=== PATIENT | female | born 1995 | race African-American/Black ===

== ENCOUNTER → 2022-05-01 | Outpatient (CLI) | payer OTHER, SELFPAY ==
[2022-05-01 15:42] LABS: HEMATOCRIT 39.4 % (36.0-47.0); HEMOGLOBIN 12.7 g/dl (12.0-15.5); MEAN CORPUSCULAR HGB CONC 32.2 g/dl (32.0-36.5); MEAN CORPUSCULAR VOLUME 86.8 fl (80.0-96.0); PLATELET COUNT, AUTOMATED 334 10^3/uL (150-450); RED BLOOD COUNT 4.54 10^6/uL (4.00-5.40); WHITE BLOOD COUNT 9.1 10^3/uL (4.0-10.0)
[2022-05-01 16:55] LABS: HCG, SERUM QUANTITATIVE 67899 MIU/ML; HEPATITIS C VIRUS ABY INDEX 0.1 INDEX (<0.8); HIV 1&2 SCREEN CENTAUR NEGATIVE (NEGATIVE)
== END ==
LOC: M LAB 14:40
PROVIDERS: ATTEND Obstetrics & Gynecology
DX: Z32.01 Encounter for pregnancy test, result positive (principal); O36.80X0 Pregnancy with inconclusive fetal viability, not applicable or unspecified

== ENCOUNTER 2022-06-13 18:00 | Emergency (ER) | payer OTHER, SELFPAY ==
[~2022-06-13] VITALS: Ht 175.3 cm; Wt 98.5 kg
[2022-06-13 23:22] LABS: RBC, URINE NONE SEEN /hpf (0-3); SQUAMOUS EPITHELIAL CELL URINE LARGE AMOUNT /hpf (SMALL AMT)
[2022-06-13 23:23] LABS: BACTERIA, URINE SMALL AMOUNT; HYALINE CAST, URINE NONE SEEN /lpf (0-1); MUCUS, URINE LARGE AMOUNT (NEGATIVE)
[2022-06-14] MEDS ORDERED: NS 1,000 ML IV ONE (00:15)
[2022-06-14] MEDS ORDERED: ONDANSETRON 4MG 2ML VIAL IV ONE (00:35)
[2022-06-14 01:25] LABS: BASO % 0.3 % (0.0-1.0); EOS % 0.1 % (0.0-3.0); HEMATOCRIT 33.8 % (36.0-47.0); HEMOGLOBIN 11.1 g/dl (12.0-15.5); LYMPH # 1.9 10^3/uL (1.5-5.0); LYMPH % 13.6 % (24.0-44.0); MEAN CORPUSCULAR HEMOGLOBIN 28.5 pg (27.0-33.0); MEAN CORPUSCULAR HGB CONC 32.8 g/dl (32.0-36.5); MEAN CORPUSCULAR VOLUME 86.7 fl (80.0-96.0); MONO # 0.9 10^3/uL (0.0-0.8); MONO % 6.5 % (2.0-8.0); NEUTROPHILS # 11.1 10^3/uL (1.5-8.5); NEUTROPHILS % 78.9 % (36.0-66.0); PLATELET COUNT, AUTOMATED 322 10^3/uL (150-450); WHITE BLOOD COUNT 14.1 10^3/uL (4.0-10.0)
[2022-06-14] MEDS ORDERED: NS 500 ML IV ONE (01:55)
[2022-06-14 02:01] LABS: ALBUMIN 2.9 GM/DL (3.2-5.2); BILIRUBIN,DIRECT 0.2 MG/DL (0.0-0.2); BILIRUBIN,TOTAL 0.4 MG/DL (0.2-1.0); TOTAL PROTEIN 7.1 GM/DL (6.4-8.2)
[2022-06-14] MEDS ORDERED: COLA100C5 PO (02:33)
[2022-06-14] MEDS ORDERED: ONDA4TAB6 PO (02:33)
[2022-06-14 02:36] VITALS: BP 109/58
== END 2022-06-14 02:45 | disposition home or self-care (01) ==
LOC: M ED 18:00
DX: O21.1 Hyperemesis gravidarum with metabolic disturbance (principal); Z3A.15 15 weeks gestation of pregnancy
CPT/HCPCS: 76801; 80047; 80076; 81000; 83690; 84702; 85025; 87086; 96361; 96374; 99284; J2405

== ENCOUNTER 2022-08-29 18:11 | Outpatient (CLI) | payer OTHER, SELFPAY ==
[~2022-08-29] VITALS: Ht 175.3 cm; Wt 101.3 kg
[~2022-08-29 18:11] MED LIST: COLA100C5 PO; ONDA4TAB6 PO
[2022-08-29] MEDS ORDERED: ACET325C5 PO (18:28)
[2022-08-29 18:34] VITALS: BP 127/67
[2022-08-29] MEDS ORDERED: HOME MED LIST COMPLETE! XX SCH (18:45)
[2022-08-29 19:15] VITALS: BP 125/60
[2022-08-29] MEDS ORDERED: CYCLOBENZAPRINE 5MG TABLET PO ONE (19:35)
[2022-08-30] MEDS ORDERED: PRENTAB9 PO (20:50)
== END 2022-08-29 20:25 | disposition home or self-care (01) ==
LOC: M LDO 18:11
PROVIDERS: ATTEND Obstetrics & Gynecology
DX: O26.892 Other specified pregnancy related conditions, second trimester (principal); R10.2 Pelvic and perineal pain; Z3A.24 24 weeks gestation of pregnancy
CPT/HCPCS: 59025; 81002; G0463

== ENCOUNTER 2022-08-30 20:29 | Outpatient (CLI) | payer OTHER, SELFPAY ==
[~2022-08-30] VITALS: Ht 175.3 cm; Wt 99.7 kg
[~2022-08-30 20:29] MED LIST changes: +ACET325C5 PO
[2022-08-30] MEDS ORDERED: PRENTAB9 PO (20:50)
[2022-08-30] MEDS ORDERED: diphenhydrAMINE 50MG CAP PO SCH (21:00)
[2022-08-30 21:06] VITALS: BP 129/66
[2022-08-30] MEDS ORDERED: HOME MED LIST COMPLETE! XX SCH (21:45)
[2022-08-30 21:53] LABS: BASO % 0.2 % (0.0-1.0); EOS % 0.1 % (0.0-3.0); HEMATOCRIT 31.7 % (36.0-47.0); HEMOGLOBIN 10.1 g/dl (12.0-15.5); LYMPH # 1.7 10^3/uL (1.5-5.0); LYMPH % 12.5 % (24.0-44.0); MEAN CORPUSCULAR HEMOGLOBIN 27.6 pg (27.0-33.0); MEAN CORPUSCULAR HGB CONC 31.9 g/dl (32.0-36.5); MEAN CORPUSCULAR VOLUME 86.6 fl (80.0-96.0); MONO # 1.1 10^3/uL (0.0-0.8); MONO % 7.8 % (2.0-8.0); NEUTROPHILS # 10.6 10^3/uL (1.5-8.5); NEUTROPHILS % 78.9 % (36.0-66.0); PLATELET COUNT, AUTOMATED 310 10^3/uL (150-450); RED BLOOD COUNT 3.66 10^6/uL (4.00-5.40); WHITE BLOOD COUNT 13.4 10^3/uL (4.0-10.0)
[2022-08-30 22:28] LABS: ALBUMIN 2.7 GM/DL (3.2-5.2); ALT/SGPT 15 U/L (12-78); BILIRUBIN,TOTAL 0.4 MG/DL (0.2-1.0); BLOOD UREA NITROGEN 4 MG/DL (7-18); CALCIUM LEVEL 9.1 MG/DL (8.5-10.1); CARBON DIOXIDE LEVEL 24 MEQ/L (21-32); CHLORIDE LEVEL 102 MEQ/L (98-107); CREATININE FOR GFR 0.53 MG/DL (0.55-1.30); GLOMERULAR FILTRATION RATE > 60.0 (>60); GLUCOSE, FASTING 85 MG/DL (70-100); POTASSIUM SERUM 3.9 MEQ/L (3.5-5.1); SODIUM LEVEL 135 MEQ/L (136-145); TOTAL PROTEIN 6.7 GM/DL (6.4-8.2)
[2022-08-30] MEDS ORDERED: INDOMETHACIN 25 MG CAP PO ONE (23:00)
== END 2022-08-31 01:24 | disposition home or self-care (01) ==
LOC: M LDO 20:29
PROVIDERS: ATTEND Obstetrics & Gynecology
DX: O26.892 Other specified pregnancy related conditions, second trimester (principal); R10.2 Pelvic and perineal pain; Z3A.24 24 weeks gestation of pregnancy; R25.2 Cramp and spasm
CPT/HCPCS: 36415; 59025; 76815; 80053; 81000; 81015; 85025; 87086; G0378; G0463

== ENCOUNTER 2022-11-17 12:38 | Outpatient (CLI) | payer OTHER, SELFPAY ==
[~2022-11-17] VITALS: Ht 175.3 cm; Wt 105.8 kg
[~2022-11-17 12:38] MED LIST changes: +PRENTAB9 PO; +ursodioL 300MG CAP PO SCH
[2022-11-17 12:58] VITALS: BP 119/69
[2022-11-17] MEDS ORDERED: HOME MED LIST COMPLETE! XX SCH (13:15)
[2022-11-17 13:20] LABS: HEMATOCRIT 30.8 % (36.0-47.0); HEMOGLOBIN 9.4 g/dl (12.0-15.5); MEAN CORPUSCULAR HGB CONC 30.5 g/dl (32.0-36.5); MEAN CORPUSCULAR VOLUME 81.9 fl (80.0-96.0); PLATELET COUNT, AUTOMATED 378 10^3/uL (150-450); RED BLOOD COUNT 3.76 10^6/uL (4.00-5.40); WHITE BLOOD COUNT 8.4 10^3/uL (4.0-10.0)
[2022-11-17 13:52] LABS: ALBUMIN 2.2 G/DL (3.2-5.2); ALKALINE PHOSPHATASE 120 U/L (46-116); ALT/SGPT 16 U/L (7.0-40); AST/SGOT 24 U/L (<34); BILIRUBIN,TOTAL 0.5 MG/DL (0.3-1.2); BLOOD UREA NITROGEN < 5 MG/DL (9-23); CALCIUM LEVEL 8.6 MG/DL (8.5-10.1); CARBON DIOXIDE LEVEL 22 MMOL/L (20-31); CHLORIDE LEVEL 104 MMOL/L (98-107); CREATININE FOR GFR 0.44 MG/DL (0.55-1.30); GLOMERULAR FILTRATION RATE > 60.0 (>60); GLUCOSE, FASTING 82 MG/DL (60-100); SODIUM LEVEL 133 MMOL/L (136-145)
== END 2022-11-17 14:30 | disposition home or self-care (01) ==
LOC: M LDO 12:38
PROVIDERS: ATTEND Obstetrics & Gynecology
DX: O26.613 Liver and biliary tract disorders in pregnancy, third trimester (principal); Z3A.36 36 weeks gestation of pregnancy
CPT/HCPCS: 36415; 59025; 80053; 82239; 85027; G0378; G0463

== ENCOUNTER 2022-11-24 09:41 | Inpatient (IN) | payer OTHER, SELFPAY ==
[~2022-11-24] VITALS: Ht 175.3 cm; Wt 104.7 kg
[2022-11-24] VITALS (25 sets, daily range): BP systolic 117–180; BP diastolic 53–124
[~2022-11-24 09:41] MED LIST changes: -ursodioL 300MG CAP PO SCH
[2022-11-24] MEDS ORDERED: LACTATED RINGER'S 1000 ML IV STA (10:09)
[2022-11-24] MEDS ORDERED: OXYTOCIN DRIP 30 UNITS in IV 1 EA IV PRN ×6 (10:10)
[2022-11-24] MEDS ORDERED: OXYTOCIN INJ 10UNITS/ML 1ML VIAL IM PRN (10:10)
[2022-11-24] MEDS ORDERED: METHYLERGONOVINE MALEATE 0.2 MG/ML VIAL (J2210) IM PRN (10:10)
[2022-11-24] MEDS ORDERED: CARBOPROST TROMETHAMINE 250 MCG/ML AMP IM PRN (10:10)
[2022-11-24] MEDS ORDERED: LIDOCAINE 1% MDV 20ML VIAL INFIL PRN (10:10)
[2022-11-24] MEDS ORDERED: TRANEXAMIC ACID INJection 1,000 MG in NS 100 ML IV PRN (10:10)
[2022-11-24] MEDS ORDERED: OXYTOCIN INJ 10UNITS/ML 1ML VIAL IV PRN (10:10)
[2022-11-24 10:56] LABS: HEMATOCRIT 30.4 % (36.0-47.0); HEMOGLOBIN 9.3 g/dl (12.0-15.5); MEAN CORPUSCULAR HEMOGLOBIN 25.1 pg (27.0-33.0); MEAN CORPUSCULAR HGB CONC 30.6 g/dl (32.0-36.5); MEAN CORPUSCULAR VOLUME 82.2 fl (80.0-96.0); PLATELET COUNT, AUTOMATED 341 10^3/uL (150-450)
[2022-11-24] MEDS: miSOPROStol 50MCG 1/2 TABLET PO SCH ×2 (11:05→15:12)
[2022-11-24] MEDS ORDERED: URSO300C3 PO (11:15)
[2022-11-24] MEDS ORDERED: HOME MED LIST COMPLETE! XX SCH (11:15)
[2022-11-24] MEDS ORDERED: PROMETHAZINE 25MG/ML 1ML VIAL IV ONE (15:35)
[2022-11-24] MEDS ORDERED: BUTORPHANOL 2 MG/ML 1ML VIAL IV ONE (15:35)
[2022-11-24] MEDS ORDERED: OXYTOCIN DRIP 30 UNITS in IV 1 EA IV SCH (19:15)
[2022-11-24] MEDS: LR 1,000 ML IV SCH (19:54)
[2022-11-25] VITALS (25 sets, daily range): BP systolic 91–141; BP diastolic 46–74
[2022-11-25] MEDS ORDERED: EPIDURAL/PCA KEYS XX PRN (00:20)
[2022-11-25] MEDS ORDERED: ONDANSETRON 4MG 2ML VIAL IV PRN (00:20)
[2022-11-25] MEDS ORDERED: LR 500 ML IV PRN (00:20)
[2022-11-25] MEDS ORDERED: diphenhydrAMINE 50MG/ML VIAL IV PRN (00:20)
[2022-11-25] MEDS ORDERED: NALOXONE INJ 0.4MG/1ML VIAL IV PRN (00:20)
[2022-11-25] MEDS ORDERED: FENTANYL/ROPIVACAINE/NACL BAG 100 ML EPIDURAL SCH (00:20)
[2022-11-25] MEDS: LR 1,000 ML IV SCH (00:40)
[2022-11-25] MEDS: ePHEDrine SULFATE 25 MG/5 ML(5MG/ML) SYRINGE IVP PRN ×3 (04:34→04:42)
[2022-11-25] MEDS ORDERED: DIBUCAINE 1% OINTMENT 30GM TOP PRN (06:30)
[2022-11-25] MEDS ORDERED: IBUPROFEN 600MG TAB PO PRN (06:30)
[2022-11-25] MEDS ORDERED: ACETAMINOPHEN TAB 650MG DOSE (2X325MG) PO PRN (06:30)
[2022-11-25] MEDS ORDERED: OXYTOCIN DRIP 30 UNITS in IV 1 EA IV SCH ×4 (06:30)
[2022-11-25] MEDS ORDERED: METHYLERGONOVINE MALEATE 0.2 MG TAB PO PRN (06:30)
[2022-11-25] MEDS ORDERED: DOCUSATE SODIUM 100MG CAPSULE PO PRN (06:30)
[2022-11-25] MEDS ORDERED: RHOGAM 300MCG (1500IU) INJ IM SCH (06:30)
[2022-11-25] MEDS ORDERED: ACETAMINOPHEN 500 MG TAB PO PRN (06:30)
[2022-11-25] MEDS ORDERED: DOXYCYCLINE HYCLATE 100MG TABLET PO ONE (08:00)
[2022-11-25] MEDS: PRENATAL VITAMINS CHEWABLE TABLET PO SCH (09:00)
[2022-11-25] MEDS ORDERED: PRENATAL VITAMINS CHEWABLE TABLET PO SCH (09:00)
[2022-11-26] MEDS: IBUPROFEN 800 MG TAB PO PRN ×2 (06:19→20:11)
[2022-11-26] MEDS: PRENATAL VITAMINS CHEWABLE TABLET PO SCH (09:18)
[2022-11-26 18:00] VITALS: BP 147/71
[2022-11-27 06:01] VITALS: BP 129/58
[2022-11-27] MEDS: PRENATAL VITAMINS CHEWABLE TABLET PO SCH (08:02)
[2022-11-27] MEDS ORDERED: MEASLES,MUMPS,RUBELLA VACCINE INJ (MMR-II) SC.IMMUN ONE (09:00)
== END 2022-11-27 11:00 | disposition home or self-care (01) | DRG 763 ==
LOC: M LDI 09:41 → M OBS 11-25 09:21
PROVIDERS: ADMIT Obstetrics & Gynecology; ATTEND Obstetrics & Gynecology
PROC: 3E033VJ Introduction of Other Hormone into Peripheral Vein, Percutaneous Approach (ICD-10-PCS; 2022-11-24)
PROC: 10D17ZZ Extraction of Products of Conception, Retained, Via Natural or Artificial Opening (ICD-10-PCS; principal; 2022-11-25)
PROC: 10E0XZZ Delivery of Products of Conception, External Approach (ICD-10-PCS; 2022-11-25)
PROC: 0KQM0ZZ Repair Perineum Muscle, Open Approach (ICD-10-PCS; 2022-11-25)
PROC: 10907ZC Drainage of Amniotic Fluid, Therapeutic from Products of Conception, Via Natural or Artificial Opening (ICD-10-PCS; 2022-11-25)
DX: O26.62 Liver and biliary tract disorders in childbirth (principal); Z37.0 Single live birth; O71.4 Obstetric high vaginal laceration alone; Z3A.37 37 weeks gestation of pregnancy; O99.02 Anemia complicating childbirth; D64.9 Anemia, unspecified; O99.214 Obesity complicating childbirth; E66.9 Obesity, unspecified; Z68.33 Body mass index [BMI] 33.0-33.9, adult; O99.824 Streptococcus B carrier state complicating childbirth; O73.1 Retained portions of placenta and membranes, without hemorrhage